=== PATIENT | male | born 1955 | race African-American/Black ===

== ENCOUNTER 2017-08-22 11:43 | Emergency (ER) | payer OTHER ==
[~2017-08-22] VITALS: Ht 175.3 cm; Wt 95.3 kg
[2017-08-22] MEDS ORDERED: cefTRIAXone SOD 1,000 MG VL IM ONE (15:15)
[2017-08-22 16:00] VITALS: BP 135/82
== END 2017-08-22 16:04 | disposition home or self-care (01) ==
LOC: ER 11:43
DX: L03.114 Cellulitis of left upper limb (principal); E11.9 Type 2 diabetes mellitus without complications; I10 Essential (primary) hypertension; Z76.0 Encounter for issue of repeat prescription
CPT/HCPCS: 96372; 99283; J0696

== ENCOUNTER 2021-04-12 16:06 | Inpatient (IN) | payer OTHER ==
[~2021-04-12] VITALS: Ht 175.3 cm; Wt 86.0 kg
[2021-04-12] MEDS ORDERED: SODIUM CHLORIDE 0.9% 1,000 ML IV ONE ×2 (16:30)
[2021-04-12 17:22] LABS: Basophils # (auto) 0 10 ^3/uL (0-0.2); Basophils % (auto) 0.4 % (0.0-2.0); Eosinophils # (auto) 0.1 10 ^3/uL (0-0.8); Hematocrit 43.4 % (41.0-53.0); Lymphocytes % (auto) 18.2 % (10.0-50.0); Mean Corpuscular Hemoglobin 31.4 pg (28.0-32.0); Mean Corpuscular Hgb Conc. 34.5 g/dL (32.0-36.0); Monocytes # (auto) 1.2 10 ^3/uL (0-1.3); Monocytes % (auto) 10.6 % (0.0-12.0); Neutrophils # (auto) 7.7 10 ^3/uL (1.6-8.6); Neutrophils % (auto) 69.8 % (37.0-80.0); Nucleated Red Blood Cells % 0.1 %; Platelet Count (auto) 224 10^3/uL (140-450); Red Blood Cells 4.77 10^6/uL (4.5-5.90); Red Cell Distribution Width 13.6 % (11.8-14.3); White Blood Cell 11.1 10^3/uL (4.4-10.8)
[2021-04-12 17:25] LABS: Chloride 102 mmol/L (98-107); Potassium 4.2 mmol/L (3.5-5.1); Sodium 137 mmol/L (136-145)
[2021-04-12 17:32] LABS: INR 1.06 (0.9-1.15); Partial Thromboplastin Time 30.8 sec (23.0-31.2)
[2021-04-12 17:33] LABS: Alanine Aminotransferase 70 U/L (16-61); Albumin 3.4 g/dL (3.4-5.0); Alkaline Phosphatase 77 U/L (45-117); Anion Gap 9 (5-15); Aspartate Aminotransferase 222 U/L (15-37); BUN/Creatinine Ratio 29.1; Bilirubin, Total 0.8 mg/dL (0.2-1.0); Blood Urea Nitrogen 66 mg/dL (7-18); Carbon Dioxide 26 mmol/L (21-32); GFR African American 38 mL/min; GFR Non-African American 31 mL/min; Glucose 86 mg/dL (74-106); Total Protein 8.1 g/dL (6.4-8.2)
[2021-04-12] MEDS ORDERED: THIAMINE 100mg/ml INJ (200mg/2ml VIAL) IV ONE (17:45)
[2021-04-12] MEDS ORDERED: cefTRIAXone 1GM/50ML D5W 50 ML IV ONE (17:45)
[2021-04-12] MEDS ORDERED: HYDROcodone-ACET 7.5/325MG TAB PO PRN (20:45)
[2021-04-12] MEDS ORDERED: ONDANSETRON HCL 4 MG/2 ML VIAL IV PRN (20:45)
[2021-04-12] MEDS ORDERED: NITROGLYCERIN 0.4 MG SL TAB SL PRN (20:45)
[2021-04-12] MEDS ORDERED: ACETAMINOPHEN 325 MG TAB PO PRN (20:45)
[2021-04-12] MEDS ORDERED: hydrALAZINE HCL 20 MG/ML VL IV PRN (20:45)
[2021-04-12] MEDS ORDERED: MORPHINE SULF INJ 2 MG/ML SYRINGE 1ML IV PRN (20:45)
[2021-04-12] MEDS ORDERED: DEXTROSE (50%) 50ML SYRG IV PRN (20:45)
[2021-04-12 22:31] LABS: Urine Bacteria FEW /hpf (None Seen); Urine Blood 3+ /uL (Negative); Urine Specific Gravity 1.016 (1.001-1.035); Urine WBC 16 /hpf (0 - 3)
[2021-04-12] MEDS: ACCU-CHEK COMFORT CURVE STRIP VI SCH (23:00)
[2021-04-12] MEDS: InsuLIN REG 1unit/0.01ml Soln (100units/ml) SC SCH (23:00)
[2021-04-12] MEDS: DULoxetine HCL 30 MG CAP PO SCH (23:15)
[2021-04-12] MEDS: SODIUM CHLORIDE 0.9% 1,000 ML IV SCH (23:15)
[2021-04-13 01:00] VITALS: BP 104/67
[2021-04-13] MEDS ORDERED: PANTOPRAZOLE 40 MG TAB PO SCH (01:30)
[2021-04-13] MEDS ORDERED: ATEN50TA PO (04:43)
[2021-04-13 05:00] VITALS: BP 113/69
[2021-04-13] MEDS: SODIUM CHLORIDE 0.9% 1,000 ML IV SCH ×2 (06:39→16:45)
[2021-04-13] MEDS: ACCU-CHEK COMFORT CURVE STRIP VI SCH ×3 (06:40→18:05)
[2021-04-13] MEDS: InsuLIN REG 1unit/0.01ml Soln (100units/ml) SC SCH ×3 (06:40→18:05)
[2021-04-13] MEDS ORDERED: GABA300C10 PO (06:40)
[2021-04-13 06:44] LABS: Basophils # (auto) 0 10 ^3/uL (0-0.2); Basophils % (auto) 0.4 % (0.0-2.0); Eosinophils # (auto) 0.1 10 ^3/uL (0-0.8); Eosinophils % (auto) 1.3 % (0.0-7.0); Hematocrit 37.1 % (41.0-53.0); Hemoglobin 12.9 g/dL (13.5-17.5); Lymphocytes # (auto) 2.3 10 ^3/uL (0.4-5.4); Lymphocytes % (auto) 27.3 % (10.0-50.0); Mean Corpuscular Hemoglobin 31.3 pg (28.0-32.0); Mean Corpuscular Hgb Conc. 34.7 g/dL (32.0-36.0); Mean Corpuscular Volume 90.2 fL (80.0-100.0); Monocytes % (auto) 11.9 % (0.0-12.0); Neutrophils # (auto) 4.9 10 ^3/uL (1.6-8.6); Neutrophils % (auto) 59.1 % (37.0-80.0); Platelet Count (auto) 197 10^3/uL (140-450); Red Blood Cells 4.11 10^6/uL (4.5-5.90); Red Cell Distribution Width 13.6 % (11.8-14.3); White Blood Cell 8.3 10^3/uL (4.4-10.8)
[2021-04-13 06:56] LABS: Calcium 8.3 mg/dL (8.5-10.1); Potassium 3.9 mmol/L (3.5-5.1)
[2021-04-13] MEDS ORDERED: cefTRIAXone 1GM/50ML D5W 50 ML IV SCH (09:00)
[2021-04-13 09:16] VITALS: BP 121/69
[2021-04-13] MEDS ORDERED: amLODIPine BESYLATE 5 MG TAB PO SCH (10:00)
[2021-04-13] MEDS ORDERED: cefTRIAXone SOD 1,000 MG VL IV SCH (10:00)
[2021-04-13] MEDS ORDERED: ENOXAPARIN SOD 40 MG/0.4 ML SYRINGE SC SCH (10:00)
[2021-04-13] MEDS ORDERED: ATENOLOL 25 MG TAB PO SCH (10:00)
[2021-04-13] MEDS ORDERED: GABAPENTIN 300 MG CAP PO SCH (10:00)
[2021-04-13] MEDS ORDERED: OPTISON 3ml Vial for INJ IV ONE (10:31)
[2021-04-13] MEDS: DULoxetine HCL 30 MG CAP PO SCH (10:48)
[2021-04-13 13:00] VITALS: BP 126/77
[2021-04-13 16:50] VITALS: BP 104/71
[2021-04-13 18:46] VITALS: BP 121/69
== END 2021-04-13 19:40 | disposition home or self-care (01) | DRG 683 ==
LOC: ER 16:06 → EDBD 16:06 → TELE 20:45 → TELE-WESTW 23:29
PROVIDERS: ADMIT Internal Medicine; ATTEND Internal Medicine
DX: N17.9 Acute kidney failure, unspecified (principal); N39.0 Urinary tract infection, site not specified; I69.954 Hemiplegia and hemiparesis following unspecified cerebrovascular disease affecting left non-dominant side; R62.7 Adult failure to thrive; Z20.822 Contact with and (suspected) exposure to COVID-19; I10 Essential (primary) hypertension; E78.5 Hyperlipidemia, unspecified; E11.42 Type 2 diabetes mellitus with diabetic polyneuropathy; F17.210 Nicotine dependence, cigarettes, uncomplicated; I65.29 Occlusion and stenosis of unspecified carotid artery; K40.90 Unilateral inguinal hernia, without obstruction or gangrene, not specified as recurrent; Z93.3 Colostomy status; Z93.2 Ileostomy status; Z79.899 Other long term (current) drug therapy; Z68.25 Body mass index [BMI] 25.0-25.9, adult
CPT/HCPCS: 36415; 70450; 70551; 71045; 73200; 74176; 80048; 80053; 80320; 81001; 82962; 84484; 85025; 85610; 85730; 87040; 87086; 87426; 93005; 93306; 93886; 96365; G0378; J0696; J1815; Q9956

== ENCOUNTER 2022-01-26 17:31 | Inpatient (IN) | payer OTHER, MEDICAID ==
[~2022-01-26] VITALS: Ht 175.3 cm; Wt 76.2 kg
[~2022-01-26 17:31] MED LIST: ATEN50TA PO; GABA300C10 PO
[2022-01-26] MEDS ORDERED: MORPHINE SULFATE 4 MG/ML SYR/VIAL IV ONE (18:30)
[2022-01-26] MEDS ORDERED: CLINDAMYCIN 600MG IV 50 ML IV ONE (18:30)
[2022-01-26] MEDS ORDERED: ONDANSETRON HCL 4 MG/2 ML VIAL IV ONE (18:30)
[2022-01-26] MEDS ORDERED: SODIUM CHLORIDE 0.9% 500 ML IV ONE (18:30)
[2022-01-26 19:12] LABS: Basophils # (auto) 0 10 ^3/uL (0-0.2); Eosinophils # (auto) 0.1 10 ^3/uL (0-0.8); Eosinophils % (auto) 1.3 % (0.0-7.0); Monocytes # (auto) 0.9 10 ^3/uL (0-1.3); Monocytes % (auto) 11.7 % (0.0-12.0); Neutrophils # (auto) 5.4 10 ^3/uL (1.6-8.6)
[2022-01-26 19:14] LABS: Basophils % (auto) 0.3 % (0.0-2.0); Hematocrit 31.3 % (41.0-53.0); Hemoglobin 10.5 g/dL (13.5-17.5); Lymphocytes # (auto) 1.5 10 ^3/uL (0.4-5.4); Lymphocytes % (auto) 19.1 % (10.0-50.0); Mean Corpuscular Hemoglobin 28.6 pg (28.0-32.0); Mean Corpuscular Hgb Conc. 33.7 g/dL (32.0-36.0); Mean Corpuscular Volume 84.9 fL (80.0-100.0); Neutrophils % (auto) 67.6 % (37.0-80.0); Nucleated Red Blood Cells % 0.1 %; Red Blood Cells 3.69 10^6/uL (4.5-5.90); Red Cell Distribution Width 13.7 % (11.8-14.3)
[2022-01-26 19:29] LABS: Albumin 2.1 g/dL (3.4-5.0); BUN/Creatinine Ratio 19.8; Calcium 9.4 mg/dL (8.5-10.1); Potassium 4.3 mmol/L (3.5-5.1)
[2022-01-26 19:32] LABS: Bilirubin, Total 0.6 mg/dL (0.2-1.0); Total Protein 8.4 g/dL (6.4-8.2)
[2022-01-26 19:39] LABS: INR 1.13 (0.9-1.15); Partial Thromboplastin Time 37.3 sec (23.6-33.0)
[2022-01-26] MEDS ORDERED: NITROGLYCERIN 0.4 MG SL TAB SL PRN (23:15)
[2022-01-26] MEDS ORDERED: DOCUSATE SOD 100 MG CAP PO PRN (23:15)
[2022-01-26] MEDS ORDERED: ONDANSETRON HCL 4 MG/2 ML VIAL IV PRN (23:15)
[2022-01-26] MEDS ORDERED: DEXTROSE (50%) 50ML SYRG IV PRN (23:15)
[2022-01-26] MEDS ORDERED: MORPHINE SULFATE INJECTION 2 MG/ML SYRG IV PRN (23:15)
[2022-01-26] MEDS ORDERED: VANCOMYCIN PER PHARMACY 0 MG IV SCH (23:15)
[2022-01-26] MEDS ORDERED: VANCOMYCIN 1GM/250ML 250 ML IV ONE (23:45)
[2022-01-26] MEDS ORDERED: CEFEPIME 2 GM in SODIUM CHL 0.9% 50 ML IV SCH (23:47)
[2022-01-27] VITALS (7 sets, daily range): BP systolic 103–143; BP diastolic 68–95
[2022-01-27] MEDS ORDERED: VANCOMYCIN 1GM/250ML 250 ML IV ONE (00:13)
[2022-01-27] MEDS: HYDROcodone-ACET 5/325MG TAB PO PRN ×2 (00:26→12:11)
[2022-01-27] MEDS: SODIUM CHLORIDE 0.9% 1,000 ML IV SCH ×2 (02:21→09:15)
[2022-01-27] MEDS ORDERED: SIMV-8 PO (02:50)
[2022-01-27] MEDS ORDERED: OMEP20TA PO (02:50)
[2022-01-27] MEDS: InsuLIN REG 1unit/0.01ml Soln (100units/ml) SC SCH ×3 (06:45→18:00)
[2022-01-27] MEDS: ACCU-CHEK COMFORT CURVE STRIP VI SCH ×3 (06:45→17:00)
[2022-01-27 06:56] LABS: Basophils # (auto) 0 10 ^3/uL (0-0.2); Basophils % (auto) 0.5 % (0.0-2.0); Eosinophils # (auto) 0.1 10 ^3/uL (0-0.8); Eosinophils % (auto) 1.9 % (0.0-7.0); Hemoglobin 9.5 g/dL (13.5-17.5); Lymphocytes # (auto) 2.2 10 ^3/uL (0.4-5.4); Mean Corpuscular Hemoglobin 28.8 pg (28.0-32.0); Mean Corpuscular Hgb Conc. 33.9 g/dL (32.0-36.0); Mean Corpuscular Volume 84.9 fL (80.0-100.0); Monocytes # (auto) 0.9 10 ^3/uL (0-1.3); Monocytes % (auto) 12.4 % (0.0-12.0); Neutrophils # (auto) 3.8 10 ^3/uL (1.6-8.6); Neutrophils % (auto) 54.2 % (37.0-80.0); Nucleated Red Blood Cells % 0.1 %; White Blood Cell 7.1 10^3/uL (4.4-10.8)
[2022-01-27 07:18] LABS: Calcium 8.8 mg/dL (8.5-10.1)
[2022-01-27 07:21] LABS: BUN/Creatinine Ratio 20.8
[2022-01-27 07:27] LABS: CRP High Sensitivity 14.9 mg/dL (< 0.3)
[2022-01-27] MEDS: CEFEPIME 2 GM in SODIUM CHL 0.9% 50 ML IV SCH ×2 (09:45→17:55)
[2022-01-27] MEDS ORDERED: ENOXAPARIN SOD 40 MG/0.4 ML SYRINGE SC SCH (10:00)
[2022-01-27] MEDS ORDERED: VANCOMYCIN 1GM/250ML 250 ML IV SCH (12:00)
[2022-01-27] MEDS ORDERED: LIDOCAINE 1% (LOCAL ANESTH.) PF 5ml SDV ID ONE (15:30)
[2022-01-27] MEDS ORDERED: InsuLIN REG 1unit/0.01ml Soln (100units/ml) SC SCH (22:00)
[2022-01-27] MEDS ORDERED: SODIUM CHLOR 0.9% PF (SALINE LOCK) 10ML VIAL/SYR IV SCH (22:00)
== END 2022-01-27 21:05 | DRG 638 ==
LOC: EDBD 17:31 → ER 17:31 → TELE 23:12 → TELE-CENTR 01-27 00:45
PROVIDERS: ADMIT Hospitalist; ATTEND Internal Medicine
PROC: 02HV33Z Insertion of Infusion Device into Superior Vena Cava, Percutaneous Approach (ICD-10-PCS; principal; 2022-01-27)
DX: E11.69 Type 2 diabetes mellitus with other specified complication (principal); G82.20 Paraplegia, unspecified; M86.8X8 Other osteomyelitis, other site; D64.9 Anemia, unspecified; E11.40 Type 2 diabetes mellitus with diabetic neuropathy, unspecified; F17.210 Nicotine dependence, cigarettes, uncomplicated; I10 Essential (primary) hypertension; Z20.822 Contact with and (suspected) exposure to COVID-19; Z99.3 Dependence on wheelchair; Z93.2 Ileostomy status; Z93.3 Colostomy status; Z86.73 Personal history of transient ischemic attack (TIA), and cerebral infarction without residual deficits; Z90.49 Acquired absence of other specified parts of digestive tract
CPT/HCPCS: 36415; 36569; 71045; 73200; 80048; 80053; 82962; 83605; 85025; 85610; 85652; 85730; 86141; 87040; 87426; 96365; 96367; 96375; G0378; J1815; J2405; J3490

== ENCOUNTER 2022-02-10 06:19 | Inpatient (IN) | payer OTHER, MEDICAID ==
[~2022-02-10] VITALS: Ht 177.8 cm; Wt 83.7 kg
[~2022-02-10 06:19] MED LIST changes: +OMEP20TA PO; +SIMV-8 PO
[2022-02-10 07:42] LABS: Basophils # (auto) 0.1 10 ^3/uL (0-0.2); Lymphocytes # (auto) 0.7 10 ^3/uL (0.4-5.4); White Blood Cell 12.6 10^3/uL (4.4-10.8)
[2022-02-10 07:44] LABS: Basophils % (auto) 0.6 % (0.0-2.0); Eosinophils # (auto) 0 10 ^3/uL (0-0.8); Eosinophils % (auto) 0.4 % (0.0-7.0); Hematocrit 28.2 % (41.0-53.0); Hemoglobin 9.8 g/dL (13.5-17.5); Lymphocytes % (auto) 5.7 % (10.0-50.0); Mean Corpuscular Hemoglobin 28.9 pg (28.0-32.0); Mean Corpuscular Hgb Conc. 34.9 g/dL (32.0-36.0); Monocytes # (auto) 0.7 10 ^3/uL (0-1.3); Monocytes % (auto) 5.9 % (0.0-12.0); Neutrophils % (auto) 87.4 % (37.0-80.0); Nucleated Red Blood Cells % 0.2 %; Red Blood Cells 3.39 10^6/uL (4.5-5.90); Red Cell Distribution Width 14.4 % (11.8-14.3)
[2022-02-10 08:01] LABS: Albumin 1.9 g/dL (3.4-5.0); Calcium 8.9 mg/dL (8.5-10.1); Magnesium 1.8 mg/dL (1.6-2.6)
[2022-02-10 08:06] LABS: BUN/Creatinine Ratio 23.1; Bilirubin, Total 0.3 mg/dL (0.2-1.0); Total Protein 7.5 g/dL (6.4-8.2)
[2022-02-10 09:24] LABS: Urine Bacteria FEW /hpf (None Seen); Urine Blood 1+ /uL (Negative); Urine Mucus FEW (None Seen); Urine Specific Gravity 1.015 (1.001-1.035); Urine WBC 9 /hpf (0 - 3)
[2022-02-10] MEDS ORDERED: PANTOPRAZOLE 40 MG/10 ML VIAL INJ IV ONE (09:30)
[2022-02-10] MEDS ORDERED: IOHEXOL 300 MG/ML 100ML BOTTLE IJ ONE (10:10)
[2022-02-10 10:32] LABS: INR 1.14 (0.9-1.15)
[2022-02-10] MEDS ORDERED: cefTRIAXone 1GM/50ML D5W 50 ML IV ONE (13:30)
[2022-02-10] MEDS ORDERED: MORPHINE SULFATE INJECTION 2 MG/ML SYRG IV PRN (14:45)
[2022-02-10] MEDS ORDERED: SODIUM CHLORIDE 0.9% 1,000 ML IV ONE (14:45)
[2022-02-10] MEDS ORDERED: NITROGLYCERIN 0.4 MG SL TAB SL PRN (14:45)
[2022-02-10] MEDS ORDERED: DEXTROSE (50%) 50ML SYRG IV PRN (15:15)
[2022-02-10] MEDS ORDERED: VANCOMYCIN PER PHARMACY 0 MG IV SCH (15:15)
[2022-02-10] MEDS: VANCOMYCIN 1GM/250ML 250 ML IV SCH (17:06)
[2022-02-10] MEDS: ALBUMIN 25% 100 ML IV SCH ×2 (17:06→23:35)
[2022-02-10] MEDS: InsuLIN REG 1unit/0.01ml Soln (100units/ml) SC SCH (17:12)
[2022-02-10] MEDS: ACCU-CHEK COMFORT CURVE STRIP VI SCH (17:12)
[2022-02-10 22:00] VITALS: BP 100/64
[2022-02-10] MEDS: PIPERACILLIN-TAZOB 3.375GM 100 ML IV SCH (22:50)
[2022-02-10] MEDS: PANTOPRAZOLE 40 MG/10 ML VIAL INJ IV SCH (22:56)
[2022-02-11] VITALS (7 sets, daily range): BP systolic 104–127; BP diastolic 52–69
[2022-02-11] MEDS: ACCU-CHEK COMFORT CURVE STRIP VI SCH ×4 (00:10→17:44)
[2022-02-11] MEDS ORDERED: INFLUENZA QUAD 2021-2022 0.5 ML SYRG IM ONE (01:30)
[2022-02-11] MEDS ORDERED: PNEUMOCOCCAL VACC POLYS 25 MCG/0.5 ML VIAL SUBCUT ONE (01:30)
[2022-02-11] MEDS ORDERED: INSREG3 SC (01:31)
[2022-02-11] MEDS ORDERED: NITR0.4S29 SL (01:31)
[2022-02-11] MEDS ORDERED: VANC500I IV (01:31)
[2022-02-11] MEDS ORDERED: HYDR-4902 PO (01:31)
[2022-02-11] MEDS ORDERED: ENO40SY SUBCUT (01:31)
[2022-02-11] MEDS ORDERED: [UNRECOGNIZED DRUG - CODE] IV (01:31)
[2022-02-11] MEDS: VANCOMYCIN 1GM/250ML 250 ML IV SCH ×2 (03:11→12:26)
[2022-02-11] MEDS: PIPERACILLIN-TAZOB 3.375GM 100 ML IV SCH ×3 (05:18→22:08)
[2022-02-11] MEDS: ALBUMIN 25% 100 ML IV SCH (05:18)
[2022-02-11] MEDS: InsuLIN REG 1unit/0.01ml Soln (100units/ml) SC SCH ×4 (06:28→17:44)
[2022-02-11 07:19] LABS: Basophils # (auto) 0.1 10 ^3/uL (0-0.2); Eosinophils # (auto) 0.2 10 ^3/uL (0-0.8); Mean Corpuscular Hgb Conc. 34.5 g/dL (32.0-36.0); Red Cell Distribution Width 14.3 % (11.8-14.3)
[2022-02-11 07:23] LABS: Basophils % (auto) 1.7 % (0.0-2.0); Eosinophils % (auto) 1.9 % (0.0-7.0); Hematocrit 24.2 % (41.0-53.0); Hemoglobin 8.3 g/dL (13.5-17.5); Lymphocytes # (auto) 1.7 10 ^3/uL (0.4-5.4); Lymphocytes % (auto) 19.5 % (10.0-50.0); Mean Corpuscular Hemoglobin 28.2 pg (28.0-32.0); Mean Corpuscular Volume 81.9 fL (80.0-100.0); Monocytes # (auto) 0.6 10 ^3/uL (0-1.3); Monocytes % (auto) 6.2 % (0.0-12.0); Neutrophils # (auto) 6.3 10 ^3/uL (1.6-8.6); Neutrophils % (auto) 70.7 % (37.0-80.0); Red Blood Cells 2.96 10^6/uL (4.5-5.90); White Blood Cell 8.9 10^3/uL (4.4-10.8)
[2022-02-11 07:36] LABS: Potassium 3.8 mmol/L (3.5-5.1)
[2022-02-11 07:53] LABS: Albumin 2.4 g/dL (3.4-5.0); BUN/Creatinine Ratio 23.4; Bilirubin, Total 0.6 mg/dL (0.2-1.0); Calcium 9.2 mg/dL (8.5-10.1); Total Protein 7.4 g/dL (6.4-8.2)
[2022-02-11] MEDS: PANTOPRAZOLE 40 MG/10 ML VIAL INJ IV SCH ×2 (10:27→22:07)
[2022-02-11] MEDS ORDERED: ONDANSETRON HCL 4 MG/2 ML VIAL IV PRN (11:15)
[2022-02-11] MEDS: MORPHINE SULFATE INJECTION 2 MG/ML SYRG IV PRN (12:55)
[2022-02-12] VITALS (8 sets, daily range): BP systolic 112–126; BP diastolic 58–81
[2022-02-12] MEDS: MORPHINE SULFATE INJECTION 2 MG/ML SYRG IV PRN (00:12)
[2022-02-12] MEDS: ACCU-CHEK COMFORT CURVE STRIP VI SCH ×5 (00:45→23:50)
[2022-02-12] MEDS: InsuLIN REG 1unit/0.01ml Soln (100units/ml) SC SCH ×5 (00:54→23:51)
[2022-02-12] MEDS: PIPERACILLIN-TAZOB 3.375GM 100 ML IV SCH ×3 (05:55→22:00)
[2022-02-12 07:44] LABS: Basophils # (auto) 0 10 ^3/uL (0-0.2); Hemoglobin 8.4 g/dL (13.5-17.5); Monocytes # (auto) 0.7 10 ^3/uL (0-1.3)
[2022-02-12 07:46] LABS: Basophils % (auto) 0.6 % (0.0-2.0); Eosinophils # (auto) 0.2 10 ^3/uL (0-0.8); Eosinophils % (auto) 3.3 % (0.0-7.0); Hematocrit 24.9 % (41.0-53.0); Lymphocytes # (auto) 1.5 10 ^3/uL (0.4-5.4); Lymphocytes % (auto) 20.1 % (10.0-50.0); Mean Corpuscular Hemoglobin 27.6 pg (28.0-32.0); Mean Corpuscular Hgb Conc. 33.7 g/dL (32.0-36.0); Mean Corpuscular Volume 81.8 fL (80.0-100.0); Red Blood Cells 3.04 10^6/uL (4.5-5.90); Red Cell Distribution Width 14.4 % (11.8-14.3); White Blood Cell 7.5 10^3/uL (4.4-10.8)
[2022-02-12 07:54] LABS: Albumin 2.6 g/dL (3.4-5.0); Calcium 9.4 mg/dL (8.5-10.1); Potassium 3.8 mmol/L (3.5-5.1)
[2022-02-12 08:00] LABS: BUN/Creatinine Ratio 18.2; Bilirubin, Total 0.6 mg/dL (0.2-1.0); Total Protein 7.5 g/dL (6.4-8.2)
[2022-02-12] MEDS: PANTOPRAZOLE 40 MG/10 ML VIAL INJ IV SCH (09:37)
[2022-02-12] MEDS ORDERED: VANCOMYCIN 1GM/250ML 250 ML IV SCH (12:00)
[2022-02-12 14:44] LABS: INR 1.16 (0.9-1.15)
[2022-02-12] MEDS ORDERED: SODIUM CHLORIDE LOCK 10 ML ONE (18:43)
[2022-02-12] MEDS ORDERED: LIDOCAINE VISCOUS 2% 15ML UD ONE (18:43)
[2022-02-12] MEDS ORDERED: diphenhdrAMINE HCL 50 MG/1 ML VL ONE (18:43)
[2022-02-12] MEDS ORDERED: fentaNYL CITRATE 100 MCG/2 ML VL ONE (18:44)
[2022-02-12] MEDS: MIDAZOLAM HCL 5 MG/ML-1ML VIAL ONE ×2 (19:14→19:17)
[2022-02-13 05:43] VITALS: BP 110/56
[2022-02-13] MEDS: ACCU-CHEK COMFORT CURVE STRIP VI SCH ×2 (05:49→12:00)
[2022-02-13] MEDS: PIPERACILLIN-TAZOB 3.375GM 100 ML IV SCH (05:49)
[2022-02-13] MEDS: InsuLIN REG 1unit/0.01ml Soln (100units/ml) SC SCH ×2 (05:50→12:00)
[2022-02-13 06:39] LABS: Basophils # (auto) 0.1 10 ^3/uL (0-0.2); Eosinophils # (auto) 0.3 10 ^3/uL (0-0.8); Hemoglobin 8.4 g/dL (13.5-17.5); Monocytes # (auto) 0.8 10 ^3/uL (0-1.3); Neutrophils # (auto) 4.9 10 ^3/uL (1.6-8.6); Neutrophils % (auto) 60.7 % (37.0-80.0); White Blood Cell 8.1 10^3/uL (4.4-10.8)
[2022-02-13 06:41] LABS: Basophils % (auto) 0.6 % (0.0-2.0); Eosinophils % (auto) 3.7 % (0.0-7.0); Lymphocytes % (auto) 25.4 % (10.0-50.0); Mean Corpuscular Hemoglobin 27.6 pg (28.0-32.0); Mean Corpuscular Hgb Conc. 33.6 g/dL (32.0-36.0); Mean Corpuscular Volume 81.9 fL (80.0-100.0); Monocytes % (auto) 9.6 % (0.0-12.0); Red Blood Cells 3.05 10^6/uL (4.5-5.90); Red Cell Distribution Width 14.4 % (11.8-14.3)
[2022-02-13 06:49] LABS: Albumin 2.4 g/dL (3.4-5.0); Calcium 9.1 mg/dL (8.5-10.1); Potassium 4.1 mmol/L (3.5-5.1)
[2022-02-13 06:52] LABS: BUN/Creatinine Ratio 12.8; Bilirubin, Total 0.5 mg/dL (0.2-1.0); Total Protein 7.6 g/dL (6.4-8.2)
[2022-02-13 08:00] VITALS: BP 119/69
[2022-02-13 09:00] VITALS: BP 133/76
[2022-02-13] MEDS ORDERED: PANTOPRAZOLE 40 MG TAB PO SCH (10:00)
[2022-02-13 12:57] VITALS: BP 110/69
[2022-02-13 15:56] VITALS: BP 107/82
[2022-02-13] MEDS: MORPHINE SULFATE INJECTION 2 MG/ML SYRG IV PRN (15:56)
== END 2022-02-13 16:23 | DRG 370 ==
LOC: EDBD 06:19 → ER 06:19 → INTOOBSV 14:44 → OBSVTOIN 14:44 → UNDOADMOB 14:44 → OVERFLOW 14:44 → UNDOADMOB 14:57 → OVERFLOW 14:57 → CENTRAL 20:12 → OVERFLOW 20:14 → UNDOADMOB 02-11 15:02 → OVERFLOW 02-11 15:02 → OBSVTOIN 02-11 15:03 → INTOOBSV 02-11 15:03 → UNDODISIN 02-13 16:23
PROVIDERS: ADMIT Internal Medicine; ATTEND Internal Medicine
PROC: 3E02340 Introduction of Influenza Vaccine into Muscle, Percutaneous Approach (ICD-10-PCS; 2022-02-11)
PROC: 3E0234Z Introduction of Serum, Toxoid and Vaccine into Muscle, Percutaneous Approach (ICD-10-PCS; 2022-02-11)
PROC: 0DJ08ZZ Inspection of Upper Intestinal Tract, Via Natural or Artificial Opening Endoscopic (ICD-10-PCS; principal; 2022-02-12 19:10)
DX: K21.01 Gastro-esophageal reflux disease with esophagitis, with bleeding (principal); E11.9 Type 2 diabetes mellitus without complications; E78.5 Hyperlipidemia, unspecified; F17.210 Nicotine dependence, cigarettes, uncomplicated; I10 Essential (primary) hypertension; K44.9 Diaphragmatic hernia without obstruction or gangrene; R00.0 Tachycardia, unspecified; D64.9 Anemia, unspecified; L89.521 Pressure ulcer of left ankle, stage 1; R91.8 Other nonspecific abnormal finding of lung field; Z20.822 Contact with and (suspected) exposure to COVID-19; Z86.73 Personal history of transient ischemic attack (TIA), and cerebral infarction without residual deficits; Z99.3 Dependence on wheelchair; Z90.49 Acquired absence of other specified parts of digestive tract; Z23 Encounter for immunization
CPT/HCPCS: 36415; 43235; 74177; 80053; 80202; 81001; 82565; 82962; 83735; 84484; 85025; 85610; 85730; 86850; 86900; 86901; 87081; 96361; 96365; 96375; C9113; G0378; J0696; J1815; J2250; J2543; P9047

== ENCOUNTER 2022-03-07 11:56 | Emergency (ER) | payer MEDICARE, MEDICAID ==
[~2022-03-07] VITALS: Ht 157.5 cm; Wt 59.0 kg
[~2022-03-07 11:56] MED LIST changes: +ENO40SY SUBCUT; +HYDR-4902 PO; +INSREG3 SC; +NITR0.4S29 SL; +VANC500I IV; +[UNRECOGNIZED DRUG - CODE] IV
[2022-03-07 13:58] LABS: Basophils # (auto) 0.1 10 ^3/uL (0-0.2); Eosinophils # (auto) 0.2 10 ^3/uL (0-0.8); Lymphocytes # (auto) 1.7 10 ^3/uL (0.4-5.4); Lymphocytes % (auto) 19.6 % (10.0-50.0); Monocytes # (auto) 0.8 10 ^3/uL (0-1.3); Neutrophils # (auto) 5.8 10 ^3/uL (1.6-8.6)
[2022-03-07 14:00] LABS: Hematocrit 14.6 % (41.0-53.0); Mean Corpuscular Hemoglobin 27.5 pg (28.0-32.0); Mean Corpuscular Hgb Conc. 33.1 g/dL (32.0-36.0); Monocytes % (auto) 8.9 % (0.0-12.0); Neutrophils % (auto) 68.5 % (37.0-80.0); Nucleated Red Blood Cells % 0.1 %; Red Blood Cells 1.76 10^6/uL (4.5-5.90); Red Cell Distribution Width 17.5 % (11.8-14.3); White Blood Cell 8.5 10^3/uL (4.4-10.8)
[2022-03-07 14:07] LABS: Albumin 1.7 g/dL (3.4-5.0); Magnesium 1.3 mg/dL (1.6-2.6); Potassium 3.2 mmol/L (3.5-5.1)
[2022-03-07 14:11] LABS: BUN/Creatinine Ratio 14.7; Bilirubin, Total 0.2 mg/dL (0.2-1.0); Total Protein 6.1 g/dL (6.4-8.2)
[2022-03-07 14:22] LABS: Hemoglobin 4.9 g/dL (13.5-17.5)
[2022-03-07 14:25] LABS: INR 1.11 (0.9-1.15); Partial Thromboplastin Time 35.3 sec (23.6-33.0)
[2022-03-07] MEDS ORDERED: POTASSIUM CHL 20MEQ/100ML 100 ML IV ONE (14:45)
[2022-03-07 16:54] VITALS: BP 157/111
[2022-03-07 17:08] VITALS: BP 143/90
[2022-03-07 17:54] VITALS: BP 120/84
[2022-03-07 18:49] VITALS: BP 158/91
[2022-03-07] MEDS ORDERED: PANT40TA2 PO (19:22)
[2022-03-07] MEDS ORDERED: SUCR1TAB22 OR (19:22)
[2022-03-07] MEDS ORDERED: FERR-20 PO (19:23)
[2022-03-07] MEDS ORDERED: MAGNESIUM OXIDE 400 MG TAB PO ONE (19:30)
[2022-03-07] MEDS ORDERED: POTASSIUM CHL 20 Meq TABLET PO ONE (19:30)
[2022-03-07 22:10] LABS: Basophils # (auto) 0.1 10 ^3/uL (0-0.2); Eosinophils # (auto) 0.2 10 ^3/uL (0-0.8); Hemoglobin 7.1 g/dL (13.5-17.5); Lymphocytes % (auto) 17.9 % (10.0-50.0); Nucleated Red Blood Cells % 0.1 %; White Blood Cell 11.3 10^3/uL (4.4-10.8)
[2022-03-07 22:12] LABS: Basophils % (auto) 1.2 % (0.0-2.0); Eosinophils % (auto) 1.4 % (0.0-7.0); Hematocrit 20.4 % (41.0-53.0); Mean Corpuscular Hemoglobin 29.2 pg (28.0-32.0); Mean Corpuscular Hgb Conc. 34.8 g/dL (32.0-36.0); Monocytes % (auto) 9.2 % (0.0-12.0); Neutrophils # (auto) 7.9 10 ^3/uL (1.6-8.6); Neutrophils % (auto) 70.3 % (37.0-80.0); Red Blood Cells 2.43 10^6/uL (4.5-5.90); Red Cell Distribution Width 17.5 % (11.8-14.3)
[2022-03-07 23:02] VITALS: BP 142/75
== END 2022-03-07 23:02 | disposition home or self-care (01) ==
LOC: EDUNIT# 11:56 → EDBD 11:56 → ER 11:56
DX: R53.1 Weakness (principal); K92.2 Gastrointestinal hemorrhage, unspecified; D64.9 Anemia, unspecified; E87.6 Hypokalemia; I10 Essential (primary) hypertension; E11.9 Type 2 diabetes mellitus without complications; E78.5 Hyperlipidemia, unspecified; K21.9 Gastro-esophageal reflux disease without esophagitis; F17.210 Nicotine dependence, cigarettes, uncomplicated; Z90.49 Acquired absence of other specified parts of digestive tract; Z79.4 Long term (current) use of insulin; Z79.2 Long term (current) use of antibiotics; Z79.899 Other long term (current) drug therapy; Z20.822 Contact with and (suspected) exposure to COVID-19
CPT/HCPCS: 36415; 36430; 71045; 74176; 80053; 82962; 83690; 83735; 85025; 85610; 85730; 86850; 86900; 86901; 86920; 87426; 93005; 96365; 96366; 99285; J3480; J7030; P9016